=== PATIENT | female | born 1945 | race Two or more races ===

== ENCOUNTER 2017-08-20 09:56 | Outpatient (CLI) | payer OTHER | END 2017-08-20 10:01 | disposition home or self-care (01) | LOC: MRI 09:56 | DX: M54.16 Radiculopathy, lumbar region (principal) | CPT/HCPCS: 72148 ==

== ENCOUNTER 2017-10-14 13:13 | Outpatient (CLI) | payer OTHER | END 2017-10-14 17:00 | disposition home or self-care (01) | LOC: RAD 13:13 | DX: D68.9 Coagulation defect, unspecified (principal); M51.36 Other intervertebral disc degeneration, lumbar region; M54.07 Panniculitis affecting regions of neck and back, lumbosacral region ==

== ENCOUNTER 2018-06-04 08:16 | Outpatient (CLI) | payer OTHER | END 2018-06-04 08:27 | disposition home or self-care (01) | LOC: RAD 08:16 | DX: M54.5 Low back pain (principal) ==

== ENCOUNTER 2018-11-11 09:15 | Outpatient (CLI) | payer OTHER ==
[2018-11-18] MEDS ORDERED: NORVASC5 MG PO (10:25)
[2018-11-18] MEDS ORDERED: ATENOLOL100 MG PO (10:25)
[2018-11-18] MEDS ORDERED: LIRICA PO (10:26)
[2018-11-18] MEDS ORDERED: CIMBALTA PO (10:27)
[2018-11-18] MEDS ORDERED: RANTIDINE PO (10:27)
== END 2018-11-11 09:32 | disposition home or self-care (01) ==
LOC: LAB 09:15
DX: M51.36 Other intervertebral disc degeneration, lumbar region (principal); M54.07 Panniculitis affecting regions of neck and back, lumbosacral region; Z01.818 Encounter for other preprocedural examination; M48.061 Spinal stenosis, lumbar region without neurogenic claudication

== ENCOUNTER 2018-11-21 05:41 | Day surgery (SDC) | payer OTHER ==
[~2018-11-21 05:41] MED LIST: ATENOLOL100 MG PO; CIMBALTA PO; LIRICA PO; NORVASC5 MG PO; RANTIDINE PO
== END 2018-11-21 10:50 | disposition home or self-care (01) ==
LOC: CIR.AMB 05:41
DX: M48.061 Spinal stenosis, lumbar region without neurogenic claudication (principal); M47.896 Other spondylosis, lumbar region

== ENCOUNTER 2019-03-19 14:22 | Outpatient (CLI) | payer OTHER | END 2019-03-19 14:31 | disposition home or self-care (01) | LOC: RAD 14:22 | DX: M54.5 Low back pain (principal) | CPT/HCPCS: 72148 ==